=== PATIENT | male | born 1960 | race African-American/Black ===

== ENCOUNTER 2019-03-11 14:12 | Emergency (ER) | payer MEDICARE, MEDICAID ==
[~2019-03-11] VITALS: Ht 165.1 cm; Wt 62.0 kg
[2019-03-11 14:30] VITALS: BP 169/98
[2019-03-11] MEDS ORDERED: LIDOCAINE 1%/EPI 1:100,000 10 ML VIAL IJ ONE (15:30)
[2019-03-11] MEDS ORDERED: TETANUS, DIPHTHERIA, PERTUSSIS VAC/PF 0.5ML (>7YR OLD) IM ONE (15:30)
[2019-03-11] MEDS ORDERED: BACITRACIN ZINC OINT UDPKT TOP ONE (15:30)
== END 2019-03-11 18:00 | disposition home or self-care (01) ==
LOC: ER 14:12
DX: S01.81XA Laceration without foreign body of other part of head, initial encounter (principal); S50.311A Abrasion of right elbow, initial encounter; W01.198A Fall on same level from slipping, tripping and stumbling with subsequent striking against other object, initial encounter; Y93.01 Activity, walking, marching and hiking; R03.0 Elevated blood-pressure reading, without diagnosis of hypertension; Y92.89 Other specified places as the place of occurrence of the external cause; F17.210 Nicotine dependence, cigarettes, uncomplicated
CPT/HCPCS: 12013; 70450; 73080; 90471; 90715; 99284; J3490

== ENCOUNTER 2019-03-16 11:54 | Emergency (ER) | payer MEDICARE, MEDICAID ==
[~2019-03-16] VITALS: Ht 167.6 cm; Wt 65.0 kg
[2019-03-16] MEDS ORDERED: BACITRACIN ZINC OINT UDPKT TOP ONE (12:45)
[2019-03-16 13:04] VITALS: BP 130/87
== END 2019-03-16 13:06 | disposition home or self-care (01) ==
LOC: ER 11:54
DX: Z48.02 Encounter for removal of sutures (principal)
CPT/HCPCS: 99283

== ENCOUNTER 2019-09-30 13:48 | Emergency (ER) | payer MEDICARE, MEDICAID ==
[~2019-09-30] VITALS: Ht 160 cm; Wt 60.0 kg
[2019-09-30] MEDS ORDERED: KETOROLAC 60MG/2ML VIAL IM ONE (16:30)
[2019-09-30 16:58] VITALS: BP 117/88
== END 2019-09-30 17:01 | disposition home or self-care (01) ==
LOC: ER 14:13
DX: K12.2 Cellulitis and abscess of mouth (principal)
CPT/HCPCS: 96372; 99283; J1885